=== PATIENT | male | born 1985 | race Caucasian/White ===

== ENCOUNTER 2022-01-25 04:01 | Emergency (ER) | payer OTHER, SELFPAY ==
[2022-01-25 04:03] VITALS: BP 143/96; PULSE 67; RESP 18; O2SAT 96; BMI 29.0
[2022-01-25 04:09] VITALS: TEMP 36.6
--- NOTE | 2022-01-25 04:24 | W.ED.CHESTPA ---
Documented by User: Koko Gauthier MD 01/25/22 05:58 HPI - Chest Pain General: Chief Complaint: Chest Pain Stated Complaint: Chest Pain Time Seen by Provider: 01/25/22 04:22 Source: patient Mode of arrival: ambulatory Limitations: no limitations History of Present Illness: Patient with complaints of tightness to his mid to left medial chest since yesterday evening around 5 PM. He states when chest pain became worse, he started having sweats and palpitations. States his heart was racing at the time. States he had some minimal shortness of breath associated with that. He denies any shortness of breath now. However, he has had some mild dyspnea on exertion with strenuous activity over past couple weeks which is not usual for him. He denies any radiation of pain. He denies any discomfort in his arm. States pain is no different with breathing. States he has slight heaviness in the central chest right now. He reports that he had similar symptoms about a year ago and was placed on Holter monitor for approximately 1 week. No abnormalities were found at that time. Patient denies any nausea or vomiting. He denies any abdominal pain. States he took 1 baby aspirin prior to arrival. He states no other past medical history. He takes no routine medications. He states Tylenol makes his stomach upset and causes nausea and cramping. Denies any tobacco use. Past surgical history only positive for appendectomy. Associated symptoms: Reports diaphoresis and palpitations; Deny abdominal pain, dyspnea, fever(s), nausea or vomiting Treatment prior to arrival: aspirin Review of Systems Const: Reports: diaphoresis; Denies: fever(s) or chills Eyes: Denies: change in vision ENMT: Denies: throat pain Card: Reports: chest pain, palpitations and other (Mild tachycardia) Resp: Reports: other (Occasional dyspnea on exertion); Denies: dyspnea, productive cough, wheezing or pain on inspiration GI: Denies: abdominal pain, nausea or vomiting : Denies: flank pain Musc: Denies: neck pain or back pain Skin/Breast: Denies: rash or pruritus Neuro: Denies: headache(s) or numbness in extremities Psych: Denies: anxiety Colin/Lymph: Denies: enlarged lymph nodes PFSH ED Supplemental PFSH Information: Past surgical history includes appendectomy Physical Exam Const: COMMON NORMALS: no acute distress, patient oriented x3, alert and well nourished GENERAL APPEARANCE: cooperative HENMT: COMMON NORMALS: normocephalic and atraumatic HEAD & SCALP: normocephalic and atraumatic Eye: COMMON NORMALS: EOMs intact bilaterally Neck/C-Spine: COMMON NORMALS: full ROM, no lymphadenopathy, supple and no JVD Lymph: LYMPHATIC: no lymphadenopathy noted Chest: OTHER: Mild reproducible pain with palpation to medial left chest and sternum. No crepitus or subcutaneous emphysema. No step-off. No ecchymosis or rash. Resp: COMMON NORMALS: normal respiratory effort, No retractions, No use of accessory muscles and clear to auscultation bilaterally AUSCULTATION: clear to auscultation bilaterally Cardio: COMMON NORMALS: no JVD, regular rate, regular rhythm and Peripheral pulses 2+ throughout RATE: regular rate RHYTHM: regular rhythm PERIPHERAL PULSES: Peripheral pulses 2+ throughout GI: COMMON NORMALS: Normal to inspection, nondistended, normoactive bowel sounds present, Soft to palpation and non-tender PALPATION: Yes Soft to palpation : COMMON NORMALS: Yes no CVA tenderness BLADDER/KIDNEY EXAM: Yes no CVA tenderness Back/Pelvis: COMMON NORMALS: no CVA tenderness Extremity: COMMON NORMALS: normal to inspection and full ROM Neuro: COMMON NORMALS: patient oriented x3, CN's II-XII intact bilaterally, moves all extremities, no focal motor deficits and no sensory deficits noted SENSORIUM/ORIENTATION: Yes alert Psych: COMMON NORMALS: mental status grossly normal, Normal thought process present, cooperative, normal affect and speech normal SPEECH: Yes normal speech THOUGHT PROCESS: Normal thought process present Skin: COMMON NORMALS: no rashes or lesions noted GENERAL SKIN EXAM: no rashes or lesions noted Course Vital Signs: Vital signs: Vital Signs Temperature 97.9 F 01/25/22 04:09 Pulse Rate 67 01/25/22 04:03 Respiratory Rate 18 01/25/22 04:03 Blood Pressure 143/96 01/25/22 04:03 Pulse Oximetry 96 01/25/22 04:03 Oxygen Delivery Me thod 01/25/22 04:03 MDM - Chest Pain Medical Decision Making Chest wall pain, chest pain not otherwise specified 0600: care transitioned to Dr. Sykes at shift change. Lab Data : 01/25/22 04:07 01/25/22 04:07 Radiology Impressions Chest X-Ray 01/25/22 04:38 IMPRESSION: No acute findings. Laboratory Results WBC 9.9 10^3/uL (4.0-10.0) 01/25/22 04:07 RBC 5.03 10^6/uL (4.1-5.3) 01/25/22 04:07 Hgb 15.4 g/dL (11.7-16.6) 01/25/22 04:07 Hct 45.2 % (42.0-52.0) 01/25/22 04:07 MCV 89.9 fl (80-94) 01/25/22 04:07 MCH 30.6 pg (28.0-34.0) 01/25/22 04:07 MCHC 34.1 g/dL (30.0-36.0) 01/25/22 04:07 RDW 12.3 % (12.1-15.1) 01/25/22 04:07 Plt Count 235 10^3/cmm (130-400) 01/25/22 04:07 MPV 9.5 fL (7.4-10.4) 01/25/22 04:07 Neut % (Auto) 60.2 % 01/25/22 04:07 Lymph % (Auto) 22.0 % 01/25/22 04:07 [place] % (Auto) 13.5 % 01/25/22 04:07 Eos % (Auto) 3.2 % 01/25/22 04:07 Baso % (Auto) 0.6 % 01/25/22 04:07 Neut # (Auto) 5.95 10^3/uL (1.8-7.7) 01/25/22 04:07 Lymph # (Auto) 2.2 10^3/uL (0.8-4.8) 01/25/22 04:07 [place] # (Auto) 1.3 10^3/uL (0.2-0.9) H 01/25/22 04:07 Eos # (Auto) 0.3 10^3/uL (0.0-0.8) 01/25/22 04:07 Baso # (Auto) 0.1 10^3/uL (0.0-0.1) 01/25/22 04:07 Nucleated RBC % (auto) 0 % 01/25/22 04:07 Nucleated RBCs # 0.0 /100WBC 01/25/22 04:07 Sodium 138 mmol/L (136-145) 01/25/22 04:07 Potassium 3.9 mmol/L (3.5-5.1) 01/25/22 04:07 Chloride 103 mmol/L (98-107) 01/25/22 04:07 Carbon Dioxide 25 mmol/L (22-29) 01/25/22 04:07 Anion Gap 13.9 (5-19) 01/25/22 04:07 BUN 24 mg/dL (6-20) H 01/25/22 04:07 Creatinine 1.2 mg/dL (0.7-1.2) 01/25/22 04:07 GFR Calculation 67.8 mL/min (90-130) L 01/25/22 04:07 Glucose 96 mg/dL (65-115) 01/25/22 04:07 Calculated Osmolality 290 mOsm/kg (285-295) 01/25/22 04:07 Calcium 9.3 mg/dL (8.5-10.5) 01/25/22 04:07 Troponin T Baseline 6 ng/L (0-15) 01/25/22 04:07 Troponin T 120 Minute 6.00 ng/L (0-15) 01/25/22 07:00 Delta Troponin T 0 ABS# (0-10) 01/25/22 07:00 Imaging Data CXR: My impression: Chest x-ray PA lateral shows nothing acute. No pneumothorax, no mass, no effusion, no infiltrate, no free air under the diaphragm. EKG Data EKG 1: I personally reviewed and interpreted this EKG as follows: EKG interpretation date: 01/25/22 EKG interpretation time: 04:17 Interpretation: Impression normal sinus rhythm with heart rate of 67. Normal ID interval, normal QT interval, normal QRS. Normal ST segment. Normal axis. Impression normal EKG. Discharge Plan Discharge Patient Disposition: Home Clinical Impression: Atypical chest pain Condition: Stable Prescriptions: New aspirin 81 mg tablet,delayed release (DR/EC) 81 mg PO DAILY Qty: 30 0RF Discharge Orders: Discharge ED (Routine); Ordered 01/25/22 Ordered By: Rocky Sykes Patient Instructions: Opioid Safety, Pain Management Activity Restrictions/Additional Instructions: Take baby aspirin daily. Avoid strenuous activities aquatic facility manager will call make arrangements for her to have an exercise stress test. Return if you have recurrence or persistent chest pain Sign Out Sign Out Data: Patient Sign Out occurred on 01/25/22 at 07:07. Patient's care was discussed, and care was transferred from to Rocky Sykes DO. Coding Level of Care Code ED Silverware Buffing Machine Operator for Chg Fwd Exam Comprehensive Documented by User: Rocky Sykes DO 01/25/22 07:45 HPI - Chest Pain General: Chief Complaint: Chest Pain Stated Complaint: Chest Pain Time Seen by Provider: 01/25/22 04:22 Course Vital Signs: Vital signs: Vital Signs Temperature 97.9 F 01/25/22 04:09 Pulse Rate 67 01/25/22 04:03 Respiratory Rate 18 01/25/22 04:03 Blood Pressure 143/96 01/25/22 04:03 Pulse Oximetry 96 01/25/22 04:03 Oxygen Delivery Me thod 01/25/22 04:03 MDM - Chest Pain Medical Decision Making Chest wall pain, chest pain not otherwise specified 0600: care transitioned to Dr. Sykes at shift change. 0742 01/25/2022 Care assumed at change of shift second troponin is unremarkable EKG does not show any acute changes. Patient has no personal history of coronary artery disease. He is non-smoker is not diabetic. Blood pressure is mildly elevated when he first arrived but is normalized now. We will go ahead and discharge the patient home start him on an aspirin daily set him up for outpatient stress testing follow-up with his primary care if he has any worsening problems or recurrence he should return to the emergency room. Medical Records I reviewed the patient's medical records. Lab Data I reviewed the patient's lab results. : 01/25/22 04:07 01/25/22 04:07 Radiology Impressions Chest X-Ray 01/25/22 04:38 IMPRESSION: No acute findings. Laboratory Results WBC 9.9 10^3/uL (4.0-10.0) 01/25/22 04:07 RBC 5.03 10^6/uL (4.1-5.3) 01/25/22 04:07 Hgb 15.4 g/dL (11.7-16.6) 01/25/22 04:07 Hct 45.2 % (42.0-52.0) 01/25/22 04:07 MCV 89.9 fl (80-94) 01/25/22 04:07 MCH 30.6 pg (28.0-34.0) 01/25/22 04:07 MCHC 34.1 g/dL (30.0-36.0) 01/25/22 04:07 RDW 12.3 % (12.1-15.1) 01/25/22 04:07 Plt Count 235 10^3/cmm (130-400) 01/25/22 04:07 MPV 9.5 fL (7.4-10.4) 01/25/22 04:07 Neut % (Auto) 60.2 % 01/25/22 04:07 Lymph % (Auto) 22.0 % 01/25/22 04:07 [place] % (Auto) 13.5 % 01/25/22 04:07 Eos % (Auto) 3.2 % 01/25/22 04:07 Baso % (Auto) 0.6 % 01/25/22 04:07 Neut # (Auto) 5.95 10^3/uL (1.8-7.7) 01/25/22 04:07 Lymph # (Auto) 2.2 10^3/uL (0.8-4.8) 01/25/22 04:07 [place] # (Auto) 1.3 10^3/uL (0.2-0.9) H 01/25/22 04:07 Eos # (Auto) 0.3 10^3/uL (0.0-0.8) 01/25/22 04:07 Baso # (Auto) 0.1 10^3/uL (0.0-0.1) 01/25/22 04:07 Nucleated RBC % (auto) 0 % 01/25/22 04:07 Nucleated RBCs # 0.0 /100WBC 01/25/22 04:07 Sodium 138 mmol/L (136-145) 01/25/22 04:07 Potassium 3.9 mmol/L (3.5-5.1) 01/25/22 04:07 Chloride 103 mmol/L (98-107) 01/25/22 04:07 Carbon Dioxide 25 mmol/L (22-29) 01/25/22 04:07 Anion Gap 13.9 (5-19) 01/25/22 04:07 BUN 24 mg/dL (6-20) H 01/25/22 04:07 Creatinine 1.2 mg/dL (0.7-1.2) 01/25/22 04:07 GFR Calculation 67.8 mL/min (90-130) L 01/25/22 04:07 Glucose 96 mg/dL (65-115) 01/25/22 04:07 Calculated Osmolality 290 mOsm/kg (285-295) 01/25/22 04:07 Calcium 9.3 mg/dL (8.5-10.5) 01/25/22 04:07 Troponin T Baseline 6 ng/L (0-15) 01/25/22 04:07 Troponin T 120 Minute 6.00 ng/L (0-15) 01/25/22 07:00 Delta Troponin T 0 ABS# (0-10) 01/25/22 07:00 Discharge Plan Discharge Patient Disposition: Home Clinical Impression: Atypical chest pain Condition: Stable Prescriptions: New aspirin 81 mg tablet,delayed release (DR/EC) 81 mg PO DAILY Qty: 30 0RF Discharge Orders: Discharge ED (Routine); Ordered 01/25/22 Ordered By: Rocky Sykes Patient Instructions: Opioid Safety, Pain Management Activity Restrictions/Additional Instructions: Take baby aspirin daily. Avoid strenuous activities aquatic facility manager will call make arrangements for her to have an exercise stress test. Return if you have recurrence or persistent chest pain Sign Out Sign Out Data: Patient Sign Out occurred on 01/25/22 at 07:07. Patient's care was discussed, and care was transferred from to Rocky Sykes DO. Coding Level of Care Code ED Silverware Buffing Machine Operator for [place] Fwd Exam Comprehensive
--- NOTE | 2022-01-25 04:38 | XRR_ITS ---
PROCEDURE INFORMATION: Exam: XR Chest Exam date and time: 01/25/2022 4:55 AM Age: 36 years old Clinical indication: Chest wall pain; Additional info: Central chest heaviness and left central chest wall pain TECHNIQUE: Imaging protocol: Radiologic exam of the chest. Views: 2 views. COMPARISON: No relevant prior studies available. FINDINGS: Lungs: Unremarkable. No consolidation. Pleural spaces: Unremarkable. No pleural effusion. No pneumothorax. Heart/Mediastinum: Unremarkable. No cardiomegaly. Bones/joints: Unremarkable. XR/XR chest 2V* [id number] IMPRESSION: No acute findings.
[2022-01-25 04:51] LABS: Basophils # 0.1 10^3/uL (0.0-0.1); Basophils % 0.6 %; Eosinophils # 0.3 10^3/uL (0.0-0.8); Eosinophils % 3.2 %; Hematocrit 45.2 % (42.0-52.0); Hemoglobin 15.4 g/dL (11.7-16.6); Lymphocytes # 2.2 10^3/uL (0.8-4.8); Mean Corpuscular HGB Conc 34.1 g/dL (30.0-36.0); Mean Corpuscular Hemoglobin 30.6 pg (28.0-34.0); Mean Corpuscular Volume 89.9 fl (80-94); Mean Platelet Volume 9.5 fL (7.4-10.4); Monocytes # 1.3 10^3/uL (0.2-0.9); Monocytes % 13.5 %; Neutrophils # 5.95 10^3/uL (1.8-7.7); Neutrophils % 60.2 %; Nucleated Red Blood Cells % 0 %; Platelet Count 235 10^3/cmm (130-400); Red Blood Count 5.03 10^6/uL (4.1-5.3); Red Cell Distribution Width 12.3 % (12.1-15.1); White Blood Count 9.9 10^3/uL (4.0-10.0)
[2022-01-25] MEDS: aspirin 81 mg Chew Tablet 283 MG PO (04:52)
[2022-01-25] MEDS: ketorolac 30 mg/mL INJ 15 MG IVP (04:52)
[2022-01-25 05:47] LABS: Anion Gap 13.9 (5-19); Blood Urea Nitrogen 24 mg/dL (6-20); Calcium 9.3 mg/dL (8.5-10.5); Carbon Dioxide 25 mmol/L (22-29); Chloride 103 mmol/L (98-107); Glomerular Filtration Rate 67.8 mL/min (90-130); Glucose 96 mg/dL (65-115); Osmolality Calculated 290 mOsm/kg (285-295); Potassium 3.9 mmol/L (3.5-5.1); Sodium 138 mmol/L (136-145); Troponin(5th) Baseline 6 ng/L (0-15)
--- NOTE | 2022-01-25 06:34 | ECG_ITS ---
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 Measurements Intervals [place] Rate: 57 P: 48 SD: 169 QRS: 32 QRSD: 101 T: 46 QT: 387 QTc: 379 Interpretive Statements SINUS BRADYCARDIA No previous ECG available for comparison Electronically Signed On 01-25-2022 20:47:16 CDT by Sophia Mcclure M.D. [id number]
[2022-01-25 07:00] VITALS: BP 121/73; PULSE 60; RESP 15; O2SAT 98
[2022-01-25 07:35] LABS: Troponin 5 2HR Delta 0 ABS# (0-10)
[2022-01-25 08:03] VITALS: BP 120/73; PULSE 58; RESP 16; O2SAT 98
--- NOTE | 2022-01-25 10:31 | ECG_ITS ---
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 Measurements Intervals [place] Rate: 67 P: 64 CT: 161 QRS: 37 QRSD: 98 T: 50 QT: 370 QTc: 393 Interpretive Statements SINUS RHYTHM INTERPRETATION BASED ON A DEFAULT AGE OF 40 YEARS No previous ECG available for comparison Electronically Signed On 01-25-2022 20:47:10 CDT by Sophia Mcclure M.D. [id number] f
--- NOTE | 2022-01-25 11:42 | DCPLANNER ---
Addendum entered by Rylee Ernandez 03/31/22 05:40: Patient had a stress test scheduled for 03.18.22 - patient did attend appointment. Addendum entered by Rylee Ernandez 03/01/22 07:18: Patient called manager rn case stating that he wanted to have the stress test ordered. garage manager faxed signed order to centralized scheduling, who will call patient with appointment information. Original Note: garage manager had message to schedule an outpatient stress test for patient. garage manager called patient to confirm that patient wanted the stress test and to confirm who patient sees for primary care. garage manager called phone number [phone], unable to speak with patient and unable to leave a voicemail for patient.
== END 2022-01-25 08:06 | disposition home or self-care (01) ==
PROVIDERS: Family Medicine; Emergency Provider Family Medicine
DX: R07.89 Other chest pain (principal)
CPT/HCPCS: 36415; 71046; 80048; 84484; 85025; 93005; 96374; 99285; J1885

== ENCOUNTER 2022-03-03 12:12 | Emergency (ER) | payer OTHER, SELFPAY ==
[2022-03-03 12:45] VITALS: BP 136/84; PULSE 69; RESP 16; TEMP 36.9; O2SAT 97; BMI 28.1
--- NOTE | 2022-03-03 12:53 | ECG_ITS ---
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 Measurements Intervals [place] Rate: 71 P: 53 DE: 170 QRS: 19 QRSD: 113 T: 34 QT: 367 QTc: 399 Interpretive Statements SINUS RHYTHM MODERATE INTRAVENTRICULAR CONDUCTION DELAY [110+ ms QRS DURATION] Compared to ECG 01/25/2022 06:34:09 Intraventricular conduction delay now present Sinus bradycardia no longer present Electronically Signed On 03-03-2022 18:03:57 CDT by Мария Arana M.D. [id number] f
--- NOTE | 2022-03-03 15:22 | ED_ITS ---
HPI - Chest Pain General: Chief Complaint: Chest Pain Stated Complaint: cp, SOB, headache Time Seen by Provider: 03/03/22 15:22 History of Present Illness: 37-year-old gentleman without significant past medical history presenting due to continued chest pain. Is been ongoing however worsened today associated with shortness of breath and near syncope. He endorses exertional left anterior chest pain without significant radiation initially however now radiates to the right jaw. Previously presented and apparently was supposed to have outpatient evaluation however this has not occ urred. Intensity symptoms has worsened. Moderate to severe. No other specific changes in health, exacerbating, or alleviating factors identified. Onset (ago): day(s) Prior episodes: No Pain location: left chest Pain radiation: jaw/teeth Severity: moderate Review of Systems General: Reports: 10 or more systems reviewed and unremarkable except in HPI and below PFSH ED PFSH: Medical History (Updated 03/08/22 @ 17:33 by Rick Swain MD) No significant past medical history Surgical History (Updated 03/08/22 @ 17:33 by Rick Swain MD) No significant past surgical history Physical Exam Const: COMMON NORMALS: alert GENERAL APPEARANCE: cooperative and well developed HENMT: COMMON NORMALS: normocephalic and atraumatic HEAD & SCALP: normocephalic and atraumatic Eye: COMMON NORMALS: conjunctivae normal CONJUNCTIVA: Yes conjunctivae norm al SCLERA: sclerae normal Neck/C-Spine: COMMON NORMALS: supple GENERAL: Yes trachea midline Resp: COMMON NORMALS: normal respiratory effort and clear to auscultation bilaterally EFFORT & INSPECTION: Yes able to speak in complete sentences AUSCULTATION: clear to auscultation bilaterally Cardio: COMMON NORMALS: regular rate and regular rhythm RATE: regular rate RHYTHM: regular rhythm GI: COMMON NORMALS: Soft to palpation PALPATION: Yes Soft to palpation and No Tenderness to palpation present (GI) Extremity: GENERAL: Yes normal exam except as noted and No edema Neuro: COMMON NORMALS: moves all extremities SENSORIUM/ORIENTATION: Yes alert and No Orientation impaired Psych: COMMON NORMALS: mental status grossly normal and Normal thought process present THOUGHT PROCESS: Normal thought process present Course Vital Signs: Vital signs: Vital Signs Temperature 98.5 F 03/03/22 18:21 Pulse Rate 70 03/03/22 18:21 Respiratory Rate 16 03/03/22 18:21 Blood Pressure 128/69 03/03/22 18:21 Pulse Oximetry 98 03/03/22 18:21 MDM - Chest Pain Medical Decision Making 37-year-old presenting with chest discomfort for months. Patient is nontoxic in appearance and not in significant distress. EKG shows sinus rhythm with nonspecific interventricular conduction delay. Laboratory studies without acute pathology to explain symptoms. Troponin and D- dimer is negative Chest x-ray without lobar consolidation or pneumothorax. Most likely cause of patient's symptoms is unspecified chest pain. Patient is low risk by heart score and does not require hospitalization at this time. The results of ED evaluation were discussed with the patient including prescri ptions and/or symptomatic cares (if applicable) including appropriate and responsible use, followup plan, and return precautions. The patient verbalized understanding and felt safe for discharge. Medical Records I reviewed the patient's medical records. Lab Data I reviewed the patient's lab results. : 03/03/22 13:00 03/03/22 13:00 Radiology Impressions Chest X-Ray 03/03/22 15:32 IMPRESSION: Unremarkable chest radiograph. Laboratory Results WBC 8.6 10^3/uL (4.0-10.0) 03/03/22 13:00 RBC 4.96 10^6/uL (4.1-5.3) 03/03/22 13:00 Hgb 15.4 g/dL (11.7-16.6) 03/03/22 13:00 Hct 44.9 % (42.0-52.0) 03/03/22 13:00 MCV 90.5 fl (80-94) 03/03/22 13:00 MCH 31.0 pg (28.0-34.0) 03/03/22 13:00 MCHC 34.3 g/dL (30.0-36.0) 03/03/22 13:00 RDW 12.5 % (12.1-15.1) 03/03/22 13:00 Plt Count 250 10^3/cmm (130-400) 03/03/22 13:00 MPV 9.6 fL (7.4-10.4) 03/03/22 13:00 Neut % (Auto) 62.7 % 03/03/22 13:00 Lymph % (Auto) 23.3 % 03/03/22 13:00 [place] % (Auto) 10.5 % 03/03/22 13:00 Eos % (Auto) 2.7 % 03/03/22 13:00 Baso % (Auto) 0.3 % 03/03/22 13:00 Neut # (Auto) 5.38 10^3/uL (1.8-7.7) 03/03/22 13:00 Lymph # (Auto) 2.0 10^3/uL (0.8-4.8) 03/03/22 13:00 [place] # (Auto) 0.9 10^3/uL (0.2-0.9) 03/03/22 13:00 Eos # (Auto) 0.2 10^3/uL (0.0-0.8) 03/03/22 13:00 Baso # (Auto) 0.0 10^3/uL (0.0-0.1) 03/03/22 13:00 Nucleated RBC % (auto) 0 % 03/03/22 13:00 Nucleated RBCs # 0.0 /100WBC 03/03/22 13:00 D-Dimer 0.30 ug/mIFEU (0-0.59) 03/03/22 13:00 Sodium 134 mmol/L (136-145) L 03/03/22 13:00 Potassium 4.3 mmol/L (3.5-5.1) 03/03/22 13:00 Chloride 101 mmol/L (98-107) 03/03/22 13:00 Carbon Dioxide 24 mmol/L (22-29) 03/03/22 13:00 Anion Gap 13.3 (5-19) 03/03/22 13:00 BUN 17 mg/dL (6-20) 03/03/22 13:00 Creatinine 1.0 mg/dL (0.7-1.2) 03/03/22 13:00 GFR Calculation 83.2 mL/min (90-130) L 03/03/22 13:00 Glucose 93 mg/dL (65-115) 03/03/22 13:00 Calculated Osmolality 279 mOsm/kg (285-295) L 03/03/22 13:00 Calcium 9.4 mg/dL (8.5-10.5) 03/03/22 13:00 Total Bilirubin 0.6 mg/dL (0.15-1.2) 03/03/22 13:00 AST 21 U/L (0-40) 03/03/22 13:00 ALT 29 U/L (0-41) 03/03/22 13:00 Alkaline Phosphatase 65 U/L (40-130) 03/03/22 13:00 Troponin T Baseline 6 ng/L (0-15) 03/03/22 13:00 Troponin T 120 Minute 6.00 ng/L (0-15) 03/03/22 15:30 Delta Troponin T 0 ABS# (0-10) 03/03/22 15:30 NT-Pro-B Natriuret Pep 23 pg/mL (0-125) 03/03/22 13:00 Total Protein 7.5 g/dL (6.6-8.7) 03/03/22 13:00 Albumin 4.5 g/dL (3.5-5.2) 03/03/22 13:00 Globulin 3.0 g/dL (1.3-4.6) 03/03/22 13:00 Lipase 45 U/L (13-60) 03/03/22 13:00 Discharge Plan Discharge Patient Disposition: Home Clinical Impression: Chest pain Condition: Stable Prescriptions: No Action No Known Home Medications Discharge Orders: Discharge ED (Routine); Ordered 03/03/22 Ordered By: Rick Swain Discharge Diet: Usual diet Discharge Activity: Resume usual activity Patient Instructions: Chest Pain (ED) Activity Restrictions/Additional Instructions: Thank you for visiting the emergency department. You were seen and evaluated for chest pain and associated symptoms. The exact cause of your symptoms is unclear though does not appear to need hospitalization at this time. I will message case management for outpatient follow-up. Return to the emergency department for anything that you are concerned about and feel needs emergency department evaluation. [facility] Main: [phone] Please call and ask for their walk-in hours or for an appointment. If you or someone you care for is experiencing a psychiatric emergency, please call the crisis hotline ([employer]) 24-hours a day, 7 days a week at [phone]. Coding Level of Care Code ED Biometric Technician for Raymon Wei
--- NOTE | 2022-03-03 15:32 | XR_ITS ---
WS: [id number] Exam: XR chest 1V portable [id number] Date/Time of Exam: 03/03/2022 3:35 PM Reason For Exam: cp Comparison 01/25/2022. Findings: The lungs are clear and fully expanded. Costophrenic angles are sharp. No infiltrates. Bronchovascula r relief appears normal. Cardiac silhouette is unremarkable. Bony elements are intact. XR/XR chest 1V portable [id number] IMPRESSION: Unremarkable chest radiograph.
[2022-03-03 15:46] LABS: Basophils % 0.3 %; Eosinophils # 0.2 10^3/uL (0.0-0.8); Eosinophils % 2.7 %; Hematocrit 44.9 % (42.0-52.0); Hemoglobin 15.4 g/dL (11.7-16.6); Lymphocytes % 23.3 %; Mean Corpuscular HGB Conc 34.3 g/dL (30.0-36.0); Mean Corpuscular Volume 90.5 fl (80-94); Mean Platelet Volume 9.6 fL (7.4-10.4); Monocytes # 0.9 10^3/uL (0.2-0.9); Monocytes % 10.5 %; Neutrophils # 5.38 10^3/uL (1.8-7.7); Neutrophils % 62.7 %; Nucleated Red Blood Cells % 0 %; Platelet Count 250 10^3/cmm (130-400); Red Blood Count 4.96 10^6/uL (4.1-5.3); Red Cell Distribution Width 12.5 % (12.1-15.1); White Blood Count 8.6 10^3/uL (4.0-10.0)
[2022-03-03 16:02] LABS: Troponin(5th) Baseline 6 ng/L (0-15)
[2022-03-03 16:08] LABS: Alanine Aminotransferase 29 U/L (0-41); Albumin Level 4.5 g/dL (3.5-5.2); Alkaline Phosphatase 65 U/L (40-130); Anion Gap 13.3 (5-19); Aspartate Amino Transferase 21 U/L (0-40); Blood Urea Nitrogen 17 mg/dL (6-20); Calcium 9.4 mg/dL (8.5-10.5); Carbon Dioxide 24 mmol/L (22-29); Chloride 101 mmol/L (98-107); Creatinine Clr Calc Pharmacy 101.4472; Glomerular Filtration Rate 83.2 mL/min (90-130); Glucose 93 mg/dL (65-115); Lipase 45 U/L (13-60); NT Pro B Type Natriuretic Pept 23 pg/mL (0-125); Osmolality Calculated 279 mOsm/kg (285-295); Potassium 4.3 mmol/L (3.5-5.1); Sodium 134 mmol/L (136-145); Total Bilirubin 0.6 mg/dL (0.15-1.2); Total Protein 7.5 g/dL (6.6-8.7)
[2022-03-03 17:22] LABS: Troponin 5 2HR Delta 0 ABS# (0-10)
[2022-03-03 18:21] VITALS: BP 128/69; PULSE 70; RESP 16; TEMP 36.9; O2SAT 98
--- NOTE | 2022-03-09 11:58 | DCPLANNER ---
it operations manager had an order to schedule an outpatient stress test for patient from the patients visit on 01.25.22, patient called piano case maker asking about the stress test being ordered. it operations manager explained that after last visit piano case maker reached out to patient about scheduling the stress test, due to patient not having a primary care physician in his chart, piano case maker was unable to order the stress test. it operations manager was given the name of patients primary care physician, and faxed the signed order to centralized scheduling, who will call patient with appointment information.
== END 2022-03-03 18:24 | disposition home or self-care (01) ==
PROVIDERS: Emergency Provider Emergency Medicine
DX: R07.9 Chest pain, unspecified (principal)
CPT/HCPCS: 36415; 71045; 80053; 83690; 83880; 84484; 85025; 85378; 93005; 99285

== ENCOUNTER 2022-03-18 08:24 | Outpatient (CLI) | payer OTHER, SELFPAY ==
--- NOTE | 2022-03-18 | ECG_ITS ---
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 Interpretive Statements NAME OF STUDY: TREADMILL STRESS TEST INDICATION: Atypical Chest Pain PROCEDURE: At the baseline, the patient's blood pressure was 145/77 with a heart rate of 63. The baseline electrocardiogram showed sinus bradycardia with normal ST-Ts.. The patient exercised for 11 minutes and 9 seconds on a standard Michael protocol. Patient attained a maximum heart rate of 188 beats per minute(103% of the maximum predicted heart rate) with a blood pressure at the peak exercise of 197/92 mm Hg. The EKG at the peak exercise revealed no significant changes. Patient did not have any chest pain or any significant cardiac arrhythmias with the exercise During the recovery phase, there were no new changes. Blood pressure at the end of the recovery phase was 132/95 mm Hg with a heart rate of 101 per minute. CONCLUSION: 1. No significant EKG changes with the treadmill exercise 2. No exercise-induced chest pain or cardiac arrhythmia 3. Good exercise tolerance, attained a maximum of 13.5 METs 4. Hypertensive response to exercise Electronically Signed On 03-27-2022 17:07:28 VP ANCILLARY by Sophia Mcclure M.D. [email or web address]
[2022-03-18 08:39] VITALS: BMI 28.1
[2022-03-18 09:45] VITALS: BP 132/95; PULSE 101
== END 2022-03-18 08:25 | disposition home or self-care (01) ==
PROVIDERS: Visit Provider Family Medicine
DX: R07.89 Other chest pain (principal); I10 Essential (primary) hypertension
CPT/HCPCS: 93017

== ENCOUNTER 2023-02-24 23:22 | Emergency (ER) | payer OTHER, SELFPAY ==
[2023-02-24 23:25] VITALS: BP 113/74; PULSE 102; RESP 18; TEMP 37.6; O2SAT 96; BMI 30.7
--- NOTE | 2023-02-25 00:17 | CTR_ITS ---
PROCEDURE INFORMATION: Exam: CT Abdomen And Pelvis With Contrast Exam date and time: 02/25/2023 12:45 AM Age: 38 years old Clinical indication: Abdominal pain; Generalized; Prior surgery; Surgery date: 6+ months; Surgery type: Appy; Patient HX: Diffuse abd pain with fever; Additional info: Abd pain, fever TECHNIQUE: Imaging protocol: Computed tomography of the abdomen and pelvis with contrast. Radiation optimization: All CT scans at this facility use at least one of these dose optimization techniques: automated exposure control; mA and/or kV adjustment per patient size (includes targeted exams where dose is matched to clinical indication); or iterative reconstruction. Contrast material: OMNI 350; Contrast volume: 100 ml; Contrast route: INTRAVENOUS (IV); REPORTING DATA: Count of CT and Cardiac NM exams in prior 12 months: This patient has received 0 known CTs and 0 known cardiac nuclear medicine studies in the 12 months prior to the current study. COMPARISON: CR XR chest 1V portable [id number] 03/03/2022 3:39 PM RADIATION DOSE METRICS: Total DLP (mGy-cm): 692.78 FINDINGS: Lungs: Visualized lung bases are unremarkable. Liver: There are no abnormal masses or intrahepatic ductal dilatation. The portal vein is patent. Gallbladder and bile ducts: The gallbladder is distended without evidence of gallstones or wall thickening. Pancreas: . No ductal dilation. Spleen: No splenomegaly. Adrenal glands: No mass. Kidneys and ureters: No hydronephrosis. Stomach and bowel: The stomach is not fully distended. There is an extensive amount of feces in the colon. There are small bowel loops distended with fluid suggestive of mild enteritis or ileus. No obstruction. Appendix: There are clips anterior to the distal portion of the psoas muscle on the right likely due to patient's prior appendectomy. Intraperitoneal space: No free air. No free fluid collection. Vasculature: No abdominal aortic aneurysm. Lymph nodes: No enlarged lymph nodes. Urinary bladder: Unremarkable as visualized. Reproductive: Prostate is enlarged measuring 43 mm in transverse diameter. Bones/joints: No acute fracture. Soft tissues: Unremarkable. CT/CT abdomen pelvis w con* [id number] IMPRESSION: Prominent small bowel loops containing fluid which may be due to mild enteritis or ileus, there is no obstruction noted.
--- NOTE | 2023-02-25 00:18 | W.ED.ABDPA2 ---
Documented by User: NAEL Webber 02/25/23 01:09 HPI - Abdominal Pain General: Chief Complaint: Abdominal Pain Stated Complaint: abd pain, fever Time Seen by Provider: 02/25/23 00:09 History of Present Illness: 38-year-old male patient comes in today with complaints of abdominal pain for the last 3 to 4 days. Patient has started running a fever starting last night. Patient reports nausea with no vomiting. Patient denies any chronic medical problems. Patient had a appendectomy. Patient takes no routine [id number] medicines. Patient takes no routine prescription medicines. Patient denies smoking, EtOH, or drugs. Associated Symptoms: Reports diarrhea, fever(s) and nausea; Denies constipation Review of Systems General: Reports: 10 or more systems reviewed and unremarkable except in HPI and below Const: Reports: fever(s) Card: Denies: chest pain Resp: Denies: dyspnea GI: Reports: abdominal pain, nausea and diarrhea; Denies: constipation : Reports: flank pain (Left side); Denies: difficulty urinating Skin/Breast: Denies: rash PFSH ED PFSH: Medical History (Updated 02/25/23 @ 02:48 by Donovan Silva DO) No significant past medical history Surgical History No significant past surgical history Family History (Updated 03/18/22 @ 09:06 by Ramiro Gorman RN) Other CAD (coronary artery disease) Physical Exam Const: COMMON NORMALS: alert HENMT: COMMON NORMALS: normocephalic HEAD & SCALP: normocephalic Neck/C-Spine: COMMON NORMALS: full ROM Resp: COMMON NORMALS: normal respiratory effort and clear to auscultation bilaterally AUSCULTATION: clear to auscultation bilaterally Cardio: COMMON NORMALS: regular rate and regular rhythm RATE: regular rate RHYTHM: regular rhythm GI: COMMON NORMALS: Soft to palpation AUSCULTATION: Yes normoactive bowel sounds PALPATION: Yes Soft to palpation, Yes Tenderness to palpation present (GI) (Generalized), No Guarding due to palpation present (GI), No Rigid due to palpation and No Rebound tenderness present Extremity: COMMON NORMALS: normal to inspection and no pedal edema Neuro: SENSORIUM/ORIENTATION: Yes alert Skin: COMMON NORMALS: turgor normal GENERAL SKIN EXAM: turgor normal Course Vital Signs: Vital signs: Vital Signs Temperature 99.6 F 02/24/23 23:25 Pulse Rate 89 02/25/23 03:04 Respiratory Rate 16 02/25/23 03:04 Blood Pressure 121/59 02/25/23 03:04 Pulse Oximetry 95 02/25/23 03:04 Oxygen Delivery Me thod Room Air 02/25/23 01:02 MDM - Abdominal Pain Medical Decision Making 38-year-old male patient comes in today for complaints of abdominal pain with fever and nausea. On exam abdomen soft with some generalized tenderness. No rebound tenderness. No guarding. Vital signs are normal. Differential diagnosis includes but not limited to abdominal abscess, cholecystitis, pancreatitis, gastroenteritis, colitis, urinary tract infection, pyelonephritis. Lab Data 02/25/23 00:15 02/25/23 00:15 Labs/Radiology: Radiology Impressions Abdomen/Pelvis CT 02/25/23 00:17 IMPRESSION: Prominent small bowel loops containing fluid which may be due to mild enteritis or ileus, there is no obstruction noted. Laboratory Results WBC 11.05 10^3/uL (3.29-11.43) 02/25/23 00:15 RBC 4.96 10^6/uL (3.85-5.65) 02/25/23 00:15 Hgb 15.30 g/dL (11.27-16.99) 02/25/23 00:15 Hct 43.6 % (37-53) 02/25/23 00:15 MCV 87.9 fl (82-101) 02/25/23 00:15 MCH 30.8 pg (27-33) 02/25/23 00:15 MCHC 35.1 g/dL (30-55) 02/25/23 00:15 RDW 12.3 % (12.1-15.1) 02/25/23 00:15 Plt Count 224 10^3/cmm (157-399) 02/25/23 00:15 MPV 9.1 fL (7.4-10.4) 02/25/23 00:15 Neut % (Auto) 71.6 % 02/25/23 00:15 Lymph % (Auto) 9.5 % 02/25/23 00:15 [place] % (Auto) 17.3 % 02/25/23 00:15 Eos % (Auto) 1.0 % 02/25/23 00:15 Baso % (Auto) 0.3 % 02/25/23 00:15 Neut # (Auto) 7.92 10^3/uL (1.8-7.7) H 02/25/23 00:15 Lymph # (Auto) 1.1 10^3/uL (0.8-4.8) 02/25/23 00:15 [place] # (Auto) 1.9 10^3/uL (0.2-0.9) H 02/25/23 00:15 Eos # (Auto) 0.1 10^3/uL (0.0-0.8) 02/25/23 00:15 Baso # (Auto) 0.0 10^3/uL (0.0-0.1) 02/25/23 00:15 Nucleated RBC % (auto) 0 % 02/25/23 00:15 Nucleated RBCs # 0.0 /100WBC 02/25/23 00:15 Sodium 137 mmol/L (136-145) 02/25/23 00:15 Potassium 4.0 mmol/L (3.5-5.1) 02/25/23 00:15 Chloride 102 mmol/L (98-107) 02/25/23 00:15 Carbon Dioxide 24 mmol/L (22-29) 02/25/23 00:15 Anion Gap 15.0 (5-19) 02/25/23 00:15 BUN 18 mg/dL (6-20) 02/25/23 00:15 Creatinine 1.2 mg/dL (0.7-1.2) 02/25/23 00:15 GFR Calculation 67.1 mL/min (90-130) L 02/25/23 00:15 Glucose 100 mg/dL (65-115) 02/25/23 00:15 Calculated Osmolality 286 mOsm/kg (285-295) 02/25/23 00:15 Calcium 9.2 mg/dL (8.5-10.5) 02/25/23 00:15 Total Bilirubin 0.9 mg/dL (0.15-1.2) 02/25/23 00:15 AST 17 U/L (0-40) 02/25/23 00:15 ALT 27 U/L (0-41) 02/25/23 00:15 Alkaline Phosphatase 60 U/L (40-130) 02/25/23 00:15 Total Protein 7.0 g/dL (6.6-8.7) 02/25/23 00:15 Albumin 4.2 g/dL (3.5-5.2) 02/25/23 00:15 Globulin 2.8 g/dL (1.3-4.6) 02/25/23 00:15 Lipase 45 U/L (13-60) 02/25/23 00:15 Urine Color Yellow (Yellow) 02/25/23 01:26 Urine Appearance Clear (CLEAR) 02/25/23 01:26 Urine pH 5 (5-7) 02/25/23 01:26 Ur Specific [place] 1.015 (1.005-1.030) 02/25/23 01:26 Urine Protein Neg (Negative) 02/25/23 01:26 Urine Glucose (UA) Norm (Normal) 02/25/23 01:26 Urine Ketones 1+ (Negative) H 02/25/23 01:26 Urine Blood Neg (Negative) 02/25/23 01:26 Urine Nitrate Negative (Negative) 02/25/23 01:26 Urine Bilirubin 1+ (Negative) H 02/25/23 01:26 Urine Urobilinogen 1 mg/dL (Negative) H 02/25/23 01:26 Ur Leukocyte Esterase Negative (Negative) 02/25/23 01:26 XR interpretation done by ED provider, pending radiology final review Discharge Plan Discharge Patient Disposition: Home Clinical Impression: Abdominal pain Condition: Stable Prescriptions: New ketorolac 10 mg tablet 10 mg PO TID PRN (Reason: pain) Qty: 10 0RF ondansetron 4 mg film 4 mg PO DAILY PRN (Reason: nausea and vomiting) Qty: 10 0RF Discharge Orders: Discharge ED (Routine); Ordered 02/25/23 Ordered By: Donovan Silva Referrals: Akilah Salazar [Primary Care Provider] - 1-3 days Patient Instructions: Abdominal Pain (ED), Opioid Safety, Pain Management Activity Restrictions/Additional Instructions: Follow a liquid diet for the next 24 hours, then you may increase your diet as tolerated provided no vomiting. Use nausea medication as needed. Pain medication as needed as well. Return for worsening pain despite treatment, vomiting liquids or medications, blood in the stool, other concerning symptoms. See your doctor next week. 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[facility] [employer] Documented by User: Donovan Silva DO 02/25/23 03:07 HPI - Abdominal Pain General: Chief Complaint: Abdominal Pain Stated Complaint: abd pain, fever Time Seen by Provider: 02/25/23 00:09 [facility] ED PFSH: Medical History (Updated 02/25/23 @ 02:48 by Donovan Silva DO) No significant past medical history Surgical History No significant past surgical history Family History (Updated 03/18/22 @ 09:06 by Ramiro Gorman RN) Other CAD (coronary artery disease) Course Vital Signs: Vital signs: Vital Signs Temperature 99.6 F 02/24/23 23:25 Pulse Rate 89 02/25/23 03:04 Respiratory Rate 16 02/25/23 03:04 Blood Pressure 121/59 02/25/23 03:04 Pulse Oximetry 95 02/25/23 03:04 Oxygen Delivery Me thod Room Air 02/25/23 01:02 MDM - Abdominal Pain Medical Decision Making 38-year-old male patient comes in today for complaints of abdominal pain with fever and nausea. On exam abdomen soft with some generalized tenderness. No rebound tenderness. No guarding. Vital signs are normal. Differential diagnosis includes but not limited to abdominal abscess, cholecystitis, pancreatitis, gastroenteritis, colitis, urinary tract infection, pyelonephritis. 38-year-old male checked out to me by NAEL Lowe. I agree with his history, evaluation, and management. He was checked out pending CT results. CT shows prominent small bowel loops containing fluid which may be due to enteritis, which is his most likely diagnosis. Other laboratory findings were not remarkable. He will be discharged with symptomatic management. Lab Data 02/25/23 00:15 02/25/23 00:15 Labs/Radiology: Radiology Impressions Abdomen/Pelvis CT 02/25/23 00:17 IMPRESSION: Prominent small bowel loops containing fluid which may be due to mild enteritis or ileus, there is no obstruction noted. Laboratory Results WBC 11.05 10^3/uL (3.29-11.43) 02/25/23 00:15 RBC 4.96 10^6/uL (3.85-5.65) 02/25/23 00:15 Hgb 15.30 g/dL (11.27-16.99) 02/25/23 00:15 Hct 43.6 % (37-53) 02/25/23 00:15 MCV 87.9 fl (82-101) 02/25/23 00:15 MCH 30.8 pg (27-33) 02/25/23 00:15 MCHC 35.1 g/dL (30-55) 02/25/23 00:15 RDW 12.3 % (12.1-15.1) 02/25/23 00:15 Plt Count 224 10^3/cmm (157-399) 02/25/23 00:15 MPV 9.1 fL (7.4-10.4) 02/25/23 00:15 Neut % (Auto) 71.6 % 02/25/23 00:15 Lymph % (Auto) 9.5 % 02/25/23 00:15 [place] % (Auto) 17.3 % 02/25/23 00:15 Eos % (Auto) 1.0 % 02/25/23 00:15 Baso % (Auto) 0.3 % 02/25/23 00:15 Neut # (Auto) 7.92 10^3/uL (1.8-7.7) H 02/25/23 00:15 Lymph # (Auto) 1.1 10^3/uL (0.8-4.8) 02/25/23 00:15 [place] # (Auto) 1.9 10^3/uL (0.2-0.9) H 02/25/23 00:15 Eos # (Auto) 0.1 10^3/uL (0.0-0.8) 02/25/23 00:15 Baso # (Auto) 0.0 10^3/uL (0.0-0.1) 02/25/23 00:15 Nucleated RBC % (auto) 0 % 02/25/23 00:15 Nucleated RBCs # 0.0 /100WBC 02/25/23 00:15 Sodium 137 mmol/L (136-145) 02/25/23 00:15 Potassium 4.0 mmol/L (3.5-5.1) 02/25/23 00:15 Chloride 102 mmol/L (98-107) 02/25/23 00:15 Carbon Dioxide 24 mmol/L (22-29) 02/25/23 00:15 Anion Gap 15.0 (5-19) 02/25/23 00:15 BUN 18 mg/dL (6-20) 02/25/23 00:15 Creatinine 1.2 mg/dL (0.7-1.2) 02/25/23 00:15 GFR Calculation 67.1 mL/min (90-130) L 02/25/23 00:15 Glucose 100 mg/dL (65-115) 02/25/23 00:15 Calculated Osmolality 286 mOsm/kg (285-295) 02/25/23 00:15 Calcium 9.2 mg/dL (8.5-10.5) 02/25/23 00:15 Total Bilirubin 0.9 mg/dL (0.15-1.2) 02/25/23 00:15 AST 17 U/L (0-40) 02/25/23 00:15 ALT 27 U/L (0-41) 02/25/23 00:15 Alkaline Phosphatase 60 U/L (40-130) 02/25/23 00:15 Total Protein 7.0 g/dL (6.6-8.7) 02/25/23 00:15 Albumin 4.2 g/dL (3.5-5.2) 02/25/23 00:15 Globulin 2.8 g/dL (1.3-4.6) 02/25/23 00:15 Lipase 45 U/L (13-60) 02/25/23 00:15 Urine Color Yellow (Yellow) 02/25/23 01:26 Urine Appearance Clear (CLEAR) 02/25/23 01:26 Urine pH 5 (5-7) 02/25/23 01:26 Ur Specific [place] 1.015 (1.005-1.030) 02/25/23 01:26 Urine Protein Neg (Negative) 02/25/23 01:26 Urine Glucose (UA) Norm (Normal) 02/25/23 01:26 Urine Ketones 1+ (Negative) H 02/25/23 01:26 Urine Blood Neg (Negative) 02/25/23 01:26 Urine Nitrate Negative (Negative) 02/25/23 01:26 Urine Bilirubin 1+ (Negative) H 02/25/23 01:26 Urine Urobilinogen 1 mg/dL (Negative) H 02/25/23 01:26 Ur Leukocyte Esterase Negative (Negative) 02/25/23 01:26 Discharge Plan Discharge Patient Disposition: Home Clinical Impression: Abdominal pain Condition: Stable Prescriptions: New ketorolac 10 mg tablet 10 mg PO TID PRN (Reason: pain) Qty: 10 0RF ondansetron 4 mg film 4 mg PO DAILY PRN (Reason: nausea and vomiting) Qty: 10 0RF Discharge Orders: Discharge ED (Routine); Ordered 02/25/23 Ordered By: Donovan Silva Referrals: Akilah Salazar [Primary Care Provider] - 1-3 days Patient Instructions: Abdominal Pain (ED), Opioid Safety, Pain Management Activity Restrictions/Additional Instructions: Follow a liquid diet for the next 24 hours, then you may increase your diet as tolerated provided no vomiting. Use nausea medication as needed. Pain medication as needed as well. Return for worsening pain despite treatment, vomiting liquids or medications, blood in the stool, other concerning symptoms. See your doctor next week. 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[facility] Wei
[2023-02-25 00:31] LABS: Basophils % 0.3 %; Eosinophils # 0.1 10^3/uL (0.0-0.8); Hematocrit 43.6 % (37-53); Lymphocytes # 1.1 10^3/uL (0.8-4.8); Lymphocytes % 9.5 %; Mean Corpuscular HGB Conc 35.1 g/dL (30-55); Mean Corpuscular Hemoglobin 30.8 pg (27-33); Mean Corpuscular Volume 87.9 fl (82-101); Mean Platelet Volume 9.1 fL (7.4-10.4); Monocytes # 1.9 10^3/uL (0.2-0.9); Monocytes % 17.3 %; Neutrophils # 7.92 10^3/uL (1.8-7.7); Neutrophils % 71.6 %; Nucleated Red Blood Cells % 0 %; Platelet Count 224 10^3/cmm (157-399); Red Blood Count 4.96 10^6/uL (3.85-5.65); Red Cell Distribution Width 12.3 % (12.1-15.1); White Blood Count 11.05 10^3/uL (3.29-11.43)
[2023-02-25] MEDS: iohexol 350 mg/mL 500 mL Btl (per mL) IV (00:47)
[2023-02-25 00:48] LABS: Alanine Aminotransferase 27 U/L (0-41); Albumin Level 4.2 g/dL (3.5-5.2); Alkaline Phosphatase 60 U/L (40-130); Aspartate Amino Transferase 17 U/L (0-40); Blood Urea Nitrogen 18 mg/dL (6-20); Calcium 9.2 mg/dL (8.5-10.5); Carbon Dioxide 24 mmol/L (22-29); Chloride 102 mmol/L (98-107); Globulin 2.8 g/dL (1.3-4.6); Glomerular Filtration Rate 67.1 mL/min (90-130); Glucose 100 mg/dL (65-115); Lipase 45 U/L (13-60); Osmolality Calculated 286 mOsm/kg (285-295); Sodium 137 mmol/L (136-145); Total Bilirubin 0.9 mg/dL (0.15-1.2)
[2023-02-25] MEDS: sodium chloride 0.9% 500 ML 999 ML IV (00:55)
[2023-02-25] MEDS: metoclopramide 5 mg/mL SDV 2 mL 10 MG IVP (00:57)
[2023-02-25] MEDS: diphenhydrAMINE 50 mg/mL SDV 1mL 12.5 MG IVP (00:58)
[2023-02-25 01:02] VITALS: BP 103/79; PULSE 89; O2SAT 96
[2023-02-25 01:35] LABS: Add Urine Microscopic? NO; Charge for UA Resulting for Rev
[2023-02-25 01:43] LABS: Bilirubin Urine 1+ (Negative); Blood Urine Neg (Negative); Glucose Urine UA Norm (Normal); Ketones Urine 1+ (Negative); Leukocyte Esterase Urine Negative (Negative); Nitrate Urine Negative (Negative); Protein Urine Neg (Negative); Specific Gravity, Urine 1.015 (1.005-1.030); Urine Appearance Clear (CLEAR); Urine Color Yellow (Yellow); Urobilinogen Urine 1 mg/dL (Negative); pH Urine 5 (5-7)
[2023-02-25 03:04] VITALS: BP 121/59; PULSE 89; RESP 16; O2SAT 95
== END 2023-02-25 03:06 | disposition home or self-care (01) ==
PROVIDERS: Emergency Provider Nurse Practitioner Family; PCP Nurse Practitioner Family
DX: R10.9 Unspecified abdominal pain (principal)
CPT/HCPCS: 36415; 74177; 80053; 81003; 83690; 85025; 96374; 99285; J1200; J2765; J7040; Q9967